=== PATIENT | female | born 1995 | race Caucasian/White ===

== ENCOUNTER 2016-12-09 08:13 | Emergency (ER) | payer MEDICAID ==
[2016-12-09] MEDS ORDERED: XYLOCAINE 1% MPF 5 mL INFILTRATI ONE (10:19)
--- NOTE | 2016-12-09 10:19 | Emergency Department Report ---
Upper Extremity - HPI Chief Complaint: Extremity Problem,Nontraumatic Stated Complaint: CYST ON LT HAND MIDDLE FINGER Time Seen by Provider: 12/09/16 10:18 Occurred When: 3 Days Mechanism: Unsure Severity: severe Symptoms: Yes Pain with Movement, Yes Swelling, No Deformity, No Limited Range of Movement, No Numbness, No Weakness, No Bruising/Ecchymosis, No Laceration or Abrasion Other History: Patient reported a cut to her left proximal middle finger that eventually resulted in an abscess three days ago ED Review of Systems ROS: Stated complaint: CYST ON LT HAND MIDDLE FINGER Other details as noted in HPI Constitutional: denies: chills, diaphoresis, fever, malaise, weakness Respiratory: denies: cough, orthopnea, shortness of breath, SOB with exertion, SOB at rest, stridor, wheezing Cardiovascular: denies: chest pain, palpitations, dyspnea on exertion, orthopnea , edema, syncope, paroxysmal nocturnal dyspnea Musculoskeletal: denies: back pain, joint swelling, arthralgia Skin: other (1 cm left proximal middle finger). denies: rash, lesions, change in color, change in hair/nails, pruritus Neurological: denies: headache, weakness, numbness, paresthesias, confusion, abnormal gait, vertigo Hematological/Lymphatic: denies: easy bleeding, easy bruising, swollen glands ED Past Medical Hx - Past Medical History Previous Medical History?: Yes Hx Sickle Cell Disease: Yes Additional medical history: Bone Marrow transplant - Surgical History Past Surgical History?: Yes - Social History Smoking Status: Never Smoker Substance Use Type: Marijuana - Medications Home Medications: Home Medications Medication Instructions Recorded Confirmed Last Taken Type Clindamycin [Clindamycin CAP] 300 mg PO Q8H #30 cap 12/09/16 Unknown Rx Ibuprofen [Motrin 600 MG tab] 600 mg PO Q8H PRN #30 tablet 12/09/16 Unknown Rx Upper Extremity Exam - Exam General: Vital signs noted. No distress. Alert and acting appropriately. Head and Torso: No HEENT Abnormality, No Neck Tenderness, No Chest/Lungs Abnormality, No Abdominal Tenderness, No Back Tenderness Shoulder Exam: Yes Normal Range of Motion in Shoulder, No Shoulder Tenderness, No Clavicle Tenderness, No Shoulder Deformity, No AC Joint Tenderness Arm Exam: No Arm/Humerus Tenderness, No Arm Deformity Elbow: No Elbow Tenderness, No Normal Range of Motion in Elbow, No Elbow Deformity Forearm: No Forearm Tenderness, No Forearm Deformity, No Pain with Pronation, No Pain with Supination Wrist: Yes Normal ROM in Wrist, No Wrist Tenderness, No Wrist Deformity, No Snuffbox Tenderness, No Pain with Axial Thumb Compression Hand: Yes Normal ROM in Digit(s), No Hand Tenderness, No Hand Deformity, No Digit Tenderness, No Digit(s) Deformity, No Tendon Dysfunction CMS Exam: Yes Broken Skin (1 cm abscess to left proximal middle finger with fluctuant, without induration), No Normal Distal Pulses, No Normal Capillary Refill, No Normal Distal Sensation ED Course Vital Signs 12/09/16 08:23 Temperature 97.9 F Pulse Rate 81 Respiratory 16 Rate Blood Pressure 123/87 O2 Sat by Pulse 100 Oximetry - Reevaluation(s) Reevaluation #1: 12/09/16 15:01 I & D ordered - I & D Left Finger Type of Procedure: Simple Blade Size: 11 I & D Procedure: betadine prep, sterile drapes applied, sterile dressing applied Progress: after abscess was lanced, moderate purulent drainage noted. Patient tolerated procedure well - Nerve Block Consent Obtained: verbal consent Time Out Performed: No Local Anesthetic Used: Lidocaine 1% Amount of anesthesia used: 3 Side: left Nerve Blocks: digital Procedure Successful: Yes Complications: none Patient Tolerated Procedure: well, no complications ED Medical Decision Making - Medical Decision Making During the course of ED, 1% Lidocaine and I & D were ordered. Patient tolerated procedure well. The wound was dressed with a nonadhesive dressing. She was sent home with prescriptions for Clindamycin and Ibuprofen, instructed to return back to the ED in 48 hours for reevaluation of wound response to medication therapy, she verbalized understanding. She was also instructed to perform warm soaks three times a day, keep the wound clean, dry and covered. - Differential Diagnosis Finger Abscess, Cellulitis Critical care attestation.: If time is entered above; I have spent that time in minutes in the direct care of this critically ill patient, excluding procedure time. ED Disposition Clinical Impression: Abscess Disposition: DISCHARGED TO HOME OR SELFCARE Is pt being admited?: No Does the pt Need Aspirin: No Condition: Stable Additional Instructions: Take medication as directed. Warm soaks to the left middle finger three times a day. Keep the wound clean, dry and covered. Return back to the ED in 48 hours for reevaluation of wound response to medication therapy. Return back to the ED for worsening symptoms or concerns Prescriptions: Clindamycin [Clindamycin CAP] 300 mg PO Q8H #30 cap Ibuprofen [Motrin 600 MG tab] 600 mg PO Q8H PRN #30 tablet PRN Reason: Pain Referrals: JEREMY FREY MD, PHD [Primary Care Provider] - 3-5 Days Forms: Work/School Release Form(ED) Time of Disposition: 11:20
[2016-12-09 11:49] VITALS: BP 128/78
== END 2016-12-09 11:49 | disposition home or self-care (01) ==
LOC: ED 08:13
DX: L02.512 Cutaneous abscess of left hand (principal); D57.00 Hb-SS disease with crisis, unspecified; F12.90 Cannabis use, unspecified, uncomplicated

== ENCOUNTER 2017-09-26 16:27 | Emergency (ER) | payer MEDICAID, OTHER ==
[2017-09-27] MEDS ORDERED: MUCINEX ER PO ONE (00:58)
[2017-09-27] MEDS ORDERED: TESSALON PERLES PO ONE (00:58)
[2017-09-27] MEDS ORDERED: TORADOL IM ONE (00:58)
--- NOTE | 2017-09-27 01:55 | XRay Report ---
FINAL REPORT EXAM: XR CHEST ROUTINE 2V HISTORY: dyspnea TECHNIQUE: PA and lateral views of the chest were submitted. FINDINGS: The heart size and mediastinum appear normal. The lungs are clear. Pleural fluid is not seen. The bones and soft tissues do not show any acute changes. IMPRESSION: No active chest disease.
--- NOTE | 2017-09-27 02:02 | Emergency Department Report ---
HPI - General Chief Complaint: Upper Respiratory Infection Time Seen by Provider: 09/27/17 00:57 - HPI HPI: The patient is a 22-year-old female presents for evaluation of cough and generalized pain. The patient reports 2 days of a non-productive cough, harsh in quality, moderate in severity, and associated with nausea and pain to the upper back and arms bilaterally, 10/10 in severity, aching in quality, exacerbated with coughing, also present for the past 2 days. ED Past Medical Hx - Past Medical History Previous Medical History?: Yes Hx Sickle Cell Disease: Yes (states she had sickle cell) Additional medical history: Bone Marrow transplant - Surgical History Past Surgical History?: No - Social History Smoking Status: Current Every Day Smoker Substance Use Type: Alcohol, Marijuana, Prescribed - Medications Home Medications: Home Medications Medication Instructions Recorded Confirmed Last Taken Type Clindamycin [Clindamycin CAP] 300 mg PO Q8H #30 cap 12/09/16 Unknown Rx Ibuprofen [Motrin 600 MG tab] 600 mg PO Q8H PRN #30 tablet 12/09/16 Unknown Rx Benzonatate [Tessalon Perles] 100 mg PO Q8HR #14 capsule 09/27/17 Unknown Rx Ibuprofen [Motrin] 800 mg PO Q8HR PRN #15 tablet 09/27/17 Unknown Rx Ondansetron [Zofran TAB] 4 mg PO Q8HR PRN #20 tablet 09/27/17 Unknown Rx Phenylephrine/Dm/Acetaminop/GG 20 ml PO Q4HR PRN #180 liquid 09/27/17 Unknown Rx [Mucinex Lhve-Qot-Ltubclielk Lq] ED Review of Systems ROS: Stated complaint: C/P COLD&COUGH Other details as noted in HPI Constitutional: denies: fever ENT: denies: throat or neck pain Respiratory: reports cough, denies: shortness of breath Cardiovascular: denies: chest pain Endocrine: denies unexplained weight loss or gain Gastrointestinal: denies: abdominal pain reports nausea Genitourinary: denies: dysuria Musculoskeletal: reports muscle pain denies: leg swelling Skin: denies: rash Neurological: denies: headache Hematological/Lymphatic: denies: easy bleeding or easy bruising Psych: denies sadness or hopelessness Physical Exam - Physical Exam Vital Signs: Vital Signs 09/26/17 17:32 Temperature 100.1 F H Pulse Rate 90 Respiratory 22 Rate Blood Pressure 120/70 O2 Sat by Pulse 97 Oximetry Physical Exam: General: well-nourished, well-developed, no acute distress Head: Normocephalic, atraumatic Eyes: normal sclera ENT: Mucous membranes are pink and moist, Neck: trachea midline, neck supple, No neck stiffness, no cervical adenopathy Respiratory: Breath sounds equal bilaterally, no wheezing, rales, or rhonchi Cardio: S1 and S2 present, no murmurs, rubs, gallops, capillary refill is brisk Abdomen: Normoactive bowel sounds, soft abdomen, no rigidity, no guarding or rebound tenderness Musc: Bilateral upper and mid back paraspinal tens to palpation present, no midline tenderness, bilateral biceps and shoulder tenderness present, there is no redness, swelling, warmth, fluctuance, crepitus, or other signs of infection to the arms or back, distal sensation, motor function, and positive tachypnea arms and legs bilaterally, No pitting edema Skin: No rash Neuro: no facial drooping, normal speech Psych: Normal affect ED Course Vital Signs 09/26/17 17:32 Temperature 100.1 F H Pulse Rate 90 Respiratory 22 Rate Blood Pressure 120/70 O2 Sat by Pulse 97 Oximetry ED Medical Decision Making - Medical Decision Making The patient was seen and examined by myself. The patient is placed on a bus monitor and continuous pulse ox. On initial evaluation, the patient was found to be in no distress. Evaluation orders were placed. EKG was negative for findings suggestive of acute cardiac infarct. The patient is given IM Toradol for pain, Tessalon Perles for their cough and Mucinex for nasal congestion. Chest x-ray is negative for pulmonary vessel congestion, pleural effusion, focal consolidation, or other acute cardio pulmonary disease process. The patient was reevaluated and reported that their symptoms were markedly improved. On reexamination the patient is found to have normal respiratory rate and O2 sat on pulse oximetry, with no costal retractions or diminishment of breath sounds on auscultation. The patient is stable for discharge with outpatient follow-up. The patient is given follow-up and return instructions. The patient expressed understanding and agreed with the plan. The patient is discharged in stable condition. Critical care attestation.: If time is entered above; I have spent that time in minutes in the direct care of this critically ill patient, excluding procedure time. ED Disposition Clinical Impression: URI, acute, Acute viral syndrome, Myalgia Disposition: DC- TO HOME OR SELFCARE Is pt being admited?: No Does the pt Need Aspirin: No Condition: Stable Instructions: Musculoskeletal Pain (ED), Influenza (ED), Viral Syndrome (ED), Upper Respiratory Infection (ED), Acute Headache (ED) Referrals: SANDOVAL BURGOS MD [Primary Care Provider] - 3-5 Days Time of Disposition: 01:57
[2017-09-27 03:16] VITALS: BP 104/74
== END 2017-09-27 02:40 | disposition home or self-care (01) ==
LOC: ED 16:27
DX: B34.9 Viral infection, unspecified (principal); J06.9 Acute upper respiratory infection, unspecified; F17.200 Nicotine dependence, unspecified, uncomplicated; F12.10 Cannabis abuse, uncomplicated
CPT/HCPCS: 71046; 96372; 99284; J1885